=== PATIENT | male | born 1950 | race Caucasian/White ===

== ENCOUNTER 2016-05-25 14:49 | Outpatient (CLI) | payer MEDICARE, BC | END 2016-05-25 14:50 | disposition home or self-care (01) | DX: Q61.02 Congenital multiple renal cysts (principal); N39.0 Urinary tract infection, site not specified ==

== ENCOUNTER 2016-07-05 08:08 | Outpatient (CLI) | payer MEDICARE, BC | END 2016-07-05 08:09 | disposition home or self-care (01) | DX: R39.11 Hesitancy of micturition (principal) ==

== ENCOUNTER 2017-03-10 15:35 | Outpatient (CLI) | payer MEDICARE, BC ==
--- NOTE | 2017-03-11 11:10 | XRAY Report ---
DATE OF SERVICE: 03/10/2017 THREE VIEW RIGHT SHOULDER: 03/10/2017 CLINICAL INDICATION: Sudden shoulder pain. FINDINGS: AP, oblique, and scapular Y views of the right shoulder demonstrate degenerative changes of the acromioclavicular and glenohumeral joints. There is no evidence of fracture or dislocation. No radiopaque foreign body is seen in the soft tissues. IMPRESSION: MODERATE DEGENERATIVE CHANGES. NO EVIDENCE OF ACUTE FRACTURE. TD: 03/11/2017 12:09
--- NOTE | 2017-03-11 11:12 | XRAY Report ---
DATE OF SERVICE: 03/10/2017 THREE VIEW RIGHT THUMB: 03/10/2017 CLINICAL INDICATION: Chronic pain. FINDINGS: AP, lateral, and oblique views of the right thumb demonstrate severe osteoarthritis at the first carpometacarpal joint, and mild osteoarthritis of the interphalangeal joint and metacarpophalangeal joint. There is no evidence of acute fracture or dislocation. No foreign body is seen in the soft tissues. IMPRESSION: OSTEOARTHRITIS. TD: 03/11/2017 12:11
== END 2017-03-10 15:36 | disposition home or self-care (01) ==
LOC: DI.S 15:35
PROVIDERS: ATTEND Family Medicine
DX: M19.011 Primary osteoarthritis, right shoulder (principal); M18.11 Unilateral primary osteoarthritis of first carpometacarpal joint, right hand; M19.041 Primary osteoarthritis, right hand
CPT/HCPCS: 73140

== ENCOUNTER 2017-04-06 08:25 | Outpatient (CLI) | payer MEDICARE, BC ==
--- NOTE | 2017-04-06 13:09 | MRI Report ---
EXAM: RIGHT SHOULDER MRI WITHOUT CONTRAST EXAM DATE: 04/06/2017 09:29 AM. CLINICAL HISTORY: Right shoulder pain for 3 months. Popped while lifting December 2016. COMPARISON: Radiographs 03/10/2017. TECHNIQUE: Multiplanar, multisequence T1-weighted and fluid-sensitive sequences of the shoulder witho ut contrast. Other: None. FINDINGS: Rotator cuff: Ill-defined full-thickness tear of the distal anterior fibers and insertion of the supr aspinatus measuring 1.8 cm medial to lateral and 1.4 cm anteroposterior. Moderate patchy edema involv ing remaining distal fibers of the supraspinatus and infraspinatus. Mild patchy edema within the dist al subscapularis. No rotator cuff muscle atrophy or fatty replacement. Long head biceps tendon: Not definitely identified within the [id number]. Labrum: Heterogenous signal abnormality throughout the superior, posterior, and posterior inferior la maggi consistent with labral tears. Complex tear and degeneration involving the superior labrum. Tiny posterior and inferior paralabral cyst formation. Bones and articular surfaces: No significant articular cartilage defects are seen. Acromioclavicular joint: Moderate degenerative change. Type II acromion. IMPRESSION: 1. Full-thickness tear of the anterior supraspinatus measuring 1.8 x 1.4 cm. 2. Extensive tears throughout the superior, posterior, and posterior inferior labrum with small poste rior and inferior paralabral cyst formation. 3. Moderate supraspinatus and infraspinatus tendinosis. 4. Nonvisualization of the long head biceps tendon within the [id number] consistent with previous tear. 5. Moderate degenerative change at the acromioclavicular joint. [facility] MUSCULOSKELETAL RADIOLOGY SECTION Referring Provider Line: [phone] SITE ID: [id number]
== END 2017-04-06 08:26 | disposition home or self-care (01) ==
LOC: DI 08:25
PROVIDERS: ATTEND Family Medicine
DX: S46.011A Strain of muscle(s) and tendon(s) of the rotator cuff of right shoulder, initial encounter (principal); S43.491A Other sprain of right shoulder joint, initial encounter; M19.011 Primary osteoarthritis, right shoulder; M75.91 Shoulder lesion, unspecified, right shoulder

== ENCOUNTER 2022-06-18 07:31 | Outpatient (CLI) | payer MEDICARE, BC ==
[2022-06-18 14:34] LABS: BASOPHILS # (AUTO) 0.1 10^3/uL (0.0-0.1); EOSINOPHILS # (AUTO) 0.1 10^3/uL (0.0-0.7); EOSINOPHILS % (AUTO) 2.1 %; HCT - HEMATOCRIT 44.5 % (42.0-52.0); HGB - HEMOGLOBIN 14.6 g/dL (14.0-18.0); LYMPHOCYTES # (AUTO) 1.8 10^3/uL (1.5-3.5); LYMPHOCYTES % (AUTO) 28.7 %; MEAN CORPUSCULAR HEMOGLOBIN 31.9 pg (27.0-31.0); MEAN CORPUSCULAR HGB CONC 32.8 g/dL (32.0-36.0); MEAN CORPUSCULAR VOLUME 97.2 fL (80.0-94.0); MEAN PLATELET VOLUME 10.5 fL (7.4-11.4); MONOCYTES # (AUTO) 0.6 10^3/uL (0.0-1.0); MONOCYTES % (AUTO) 9.4 %; NEUTROPHILS # (AUTO) 3.6 10^3/uL (1.5-6.6); NEUTROPHILS % (AUTO) 58.5 %; PLT - PLATELET COUNT 205 10^3/uL (130-450); RED BLOOD COUNT 4.58 10^6/uL (4.70-6.10); RED CELL DISTRIBUTION WIDTH 12.6 % (12.0-15.0); WHITE BLOOD COUNT 6.1 x10^3/uL (4.8-10.8)
[2022-06-18 14:36] LABS: BILIRUBIN,URINE NEGATIVE (NEGATIVE); GLUCOSE, URINE (UA) NEGATIVE (NEGATIVE); KETONES,URINE (UA) NEGATIVE (NEGATIVE); LEUKOCYTE ESTERASE, URINE NEGATIVE (NEGATIVE); NITRITE,URINE NEGATIVE (NEGATIVE); OCCULT BLOOD,URINE TRACE-INTA (NEGATIVE); PH,URINE 6.5 PH (5.0-7.5); PROTEIN,URINE NEGATIVE (NEGATIVE); UROBILINOGEN,URINE 0.2 (NORMAL) E.U./dL (NORMAL)
[2022-06-18 14:38] LABS: CLARITY,URINE CLEAR (CLEAR)
[2022-06-18 14:55] LABS: ALBUMIN 4.2 g/dL (3.2-5.5); ALBUMIN/GLOBULIN RATIO 1.6 (1.0-2.2); ALKALINE PHOSPHATASE 49 IU/L (42-121); ALT ALANINE AMINOTRANSFERASE 26 IU/L (10-60); AST ASPARTATE AMINOTRANSFERASE 25 IU/L (10-42); BILIRUBIN,TOTAL 0.7 mg/dL (0.2-1.0); BUN - BLOOD UREA NITROGEN 26 mg/dL (6-20); CALCIUM 9.1 mg/dL (8.5-10.3); CARBON DIOXIDE - CO2 27 mmol/L (21-32); CHLORIDE 110 mmol/L (101-111); CHOL/HDL RATIO 2.5 (<5.0); CHOLESTEROL 105 mg/dL; CREATININE 0.8 mg/dL (0.6-1.2); GFR - MDRD 94 (>89); GLUCOSE 110 mg/dL (70-100); HDL CHOLESTEROL 42 mg/dL; LDL CHOLESTEROL,CALCULATED 48 mg/dL; LDL/HDL RATIO 1.1 (<3.6); POTASSIUM 4.6 mmol/L (3.5-5.0); SODIUM 141 mmol/L (135-145); TOTAL PROTEIN 6.9 g/dL (6.7-8.2); TRIGLYCERIDES 75 mg/dL; VLDL CHOLESTEROL 15 mg/dL
[2022-06-18 14:57] LABS: THYROID STIMULATING HORMONE 0.99 uIU/mL (0.34-5.60)
== END 2022-06-18 07:32 | disposition home or self-care (01) ==
LOC: LAB.S 07:31
PROVIDERS: ATTEND Internal Medicine
DX: E78.5 Hyperlipidemia, unspecified (principal); Z79.899 Other long term (current) drug therapy; Z13.220 Encounter for screening for lipoid disorders; R33.9 Retention of urine, unspecified; Z13.29 Encounter for screening for other suspected endocrine disorder
CPT/HCPCS: 36415; 80053; 80061; 81001; 81003; 83721; 84153; 84443; 85025

== ENCOUNTER 2022-09-15 08:38 | Outpatient (CLI) | payer MEDICARE, BC ==
--- NOTE | 2022-09-15 13:06 | XRAY Report ---
PROCEDURE: Lumbar Spine Complete INDICATIONS: VERTEBROGENIC LOW BACK PAIN TECHNIQUE: 5 views of the lumbar spine were acquired. COMPARISON: None. FINDINGS: Bones: 5 [id number] vertebrae are present. There is grade 1 anterolisthesis of L5 on S1 measuri ng approximately 9 mm. Multilevel 2 to 3 mm grade 1 retrolisthesis throughout the remainder of the orquidea mbar spine. No vertebral body compression fractures. No suspicious bony lesions. Multilevel disc sp delia narrowing and degenerative endplate changes. There is multilevel facet hypertrophy. Soft tissues: Overlying bowel gas pattern is normal.. Atherosclerotic calcifications are present. Obliques: Suspected bilateral pars defects at L5. IMPRESSION: 1.Moderate to severe multilevel spondylosis with multilevel mild degenerative retrolisthesis. 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 Reviewed by: Juan Huston MD on 09/15/2022 1:05 PM PDT Approved by: Juan Huston MD on 09/15/2022 1:05 PM PDT Station ID: [id number]
== END 2022-09-15 08:39 | disposition home or self-care (01) ==
LOC: DI.S 08:38
PROVIDERS: ATTEND Internal Medicine
DX: M47.816 Spondylosis without myelopathy or radiculopathy, lumbar region (principal); M47.817 Spondylosis without myelopathy or radiculopathy, lumbosacral region; M43.17 Spondylolisthesis, lumbosacral region; M43.16 Spondylolisthesis, lumbar region

== ENCOUNTER 2022-10-11 09:03 | Outpatient (CLI) | payer MEDICARE, BC ==
[2022-10-11 15:27] LABS: BASOPHILS % (AUTO) 0.7 %; EOSINOPHILS # (AUTO) 0.1 10^3/uL (0.0-0.7); EOSINOPHILS % (AUTO) 2.1 %; HCT - HEMATOCRIT 42.6 % (42.0-52.0); HGB - HEMOGLOBIN 14.4 g/dL (14.0-18.0); LYMPHOCYTES # (AUTO) 1.7 10^3/uL (1.5-3.5); LYMPHOCYTES % (AUTO) 27.4 %; MEAN CORPUSCULAR HGB CONC 33.8 g/dL (32.0-36.0); MEAN CORPUSCULAR VOLUME 97.7 fL (80.0-94.0); MEAN PLATELET VOLUME 10.9 fL (7.4-11.4); MONOCYTES # (AUTO) 0.5 10^3/uL (0.0-1.0); MONOCYTES % (AUTO) 8.5 %; NEUTROPHILS # (AUTO) 3.7 10^3/uL (1.5-6.6); PLT - PLATELET COUNT 183 10^3/uL (130-450); RED BLOOD COUNT 4.36 10^6/uL (4.70-6.10); RED CELL DISTRIBUTION WIDTH 12.3 % (12.0-15.0); WHITE BLOOD COUNT 6.1 x10^3/uL (4.8-10.8)
[2022-10-11 15:49] LABS: CALCIUM 9.6 mg/dL (8.5-10.3); CREATININE 0.8 mg/dL (0.6-1.3); POTASSIUM 4.6 mmol/L (3.5-4.5)
[2022-10-11 18:01] LABS: PT - PROTHROMBIN TIME 10.8 secs (9.9-12.6)
[2022-10-11 18:09] LABS: PARTIAL THROMBOPLASTIN TIME 28.6 secs (24.9-33.3)
== END 2022-10-11 09:04 | disposition home or self-care (01) ==
LOC: LAB.S 09:03
PROVIDERS: ATTEND Student in an Organized Health Care Education/Training Program
DX: R39.9 Unspecified symptoms and signs involving the genitourinary system (principal)
CPT/HCPCS: 36415; 80048; 85025; 85610; 85730; 87077; 87086; 87181

== ENCOUNTER 2022-12-20 09:25 | Outpatient (CLI) | payer MEDICARE, BC | END 2022-12-20 09:26 | disposition home or self-care (01) | LOC: LAB.S 09:25 | PROVIDERS: ATTEND Student in an Organized Health Care Education/Training Program | DX: R39.9 Unspecified symptoms and signs involving the genitourinary system (principal) | CPT/HCPCS: 87086 ==

== ENCOUNTER 2023-09-16 07:32 | Outpatient (CLI) | payer MEDICARE, BC ==
[2023-09-16 15:04] LABS: BASOPHILS # (AUTO) 0.1 10^3/uL (0.0-0.1); BASOPHILS % (AUTO) 1.2 %; EOSINOPHILS # (AUTO) 0.1 10^3/uL (0.0-0.7); EOSINOPHILS % (AUTO) 1.9 %; HCT - HEMATOCRIT 43.6 % (42.0-52.0); HGB - HEMOGLOBIN 14.7 g/dL (14.0-18.0); LYMPHOCYTES # (AUTO) 1.7 10^3/uL (1.5-3.5); LYMPHOCYTES % (AUTO) 29.4 %; MEAN CORPUSCULAR HEMOGLOBIN 32.3 pg (27.0-31.0); MEAN CORPUSCULAR HGB CONC 33.7 g/dL (32.0-36.0); MEAN CORPUSCULAR VOLUME 95.8 fL (80.0-94.0); MEAN PLATELET VOLUME 10.8 fL (7.4-11.4); MONOCYTES # (AUTO) 0.5 10^3/uL (0.0-1.0); MONOCYTES % (AUTO) 8.8 %; NEUTROPHILS # (AUTO) 3.4 10^3/uL (1.5-6.6); NEUTROPHILS % (AUTO) 58.2 %; PLT - PLATELET COUNT 218 10^3/uL (130-450); RED BLOOD COUNT 4.55 10^6/uL (4.70-6.10); RED CELL DISTRIBUTION WIDTH 12.3 % (12.0-15.0); WHITE BLOOD COUNT 5.8 x10^3/uL (4.8-10.8)
[2023-09-16 15:40] LABS: ALBUMIN 4.3 g/dL (3.2-5.5); ALKALINE PHOSPHATASE 63 IU/L (42-121); ALT ALANINE AMINOTRANSFERASE 17 IU/L (10-60); AST ASPARTATE AMINOTRANSFERASE 19 IU/L (10-42); BILIRUBIN,TOTAL 1.1 mg/dL (0.2-1.0); BUN - BLOOD UREA NITROGEN 21 mg/dL (6-20); CALCIUM 9.4 mg/dL (8.5-10.3); CARBON DIOXIDE - CO2 26 mmol/L (21-32); CHLORIDE 106 mmol/L (101-111); CHOL/HDL RATIO 2.3 (<5.0); CHOLESTEROL 88 mg/dL; CREATININE 0.8 mg/dL (0.6-1.3); GFR - MDRD 94 (>89); GLUCOSE 104 mg/dL (74-104); HDL CHOLESTEROL 38 mg/dL; LDL CHOLESTEROL,CALCULATED 39 mg/dL; POTASSIUM 4.2 mmol/L (3.5-4.5); SODIUM 138 mmol/L (135-145); TOTAL PROTEIN 6.4 g/dL (6.4-8.9); TRIGLYCERIDES 56 mg/dL; VLDL CHOLESTEROL 11 mg/dL
[2023-09-16 15:52] LABS: THYROID STIMULATING HORMONE 1.14 uIU/mL (0.34-5.60)
== END 2023-09-16 07:33 | disposition home or self-care (01) ==
LOC: LAB.S 07:32
PROVIDERS: ATTEND Internal Medicine
DX: E78.5 Hyperlipidemia, unspecified (principal); Z13.228 Encounter for screening for other metabolic disorders; Z13.29 Encounter for screening for other suspected endocrine disorder; Z13.0 Encounter for screening for diseases of the blood and blood-forming organs and certain disorders involving the immune mechanism
CPT/HCPCS: 36415; 80053; 80061; 83721; 84443; 85025